=== PATIENT | male | born 1995 | race Hispanic/Latino ===

== ENCOUNTER 2022-08-24 13:11 | Emergency (ER) | payer SELFPAY ==
[2022-08-24] MEDS ORDERED: NA CHLORIDE 0.9% 1,000 ML ONE ×2 (14:16→15:35)
[2022-08-24] MEDS ORDERED: ONDANSETRON 4 MG/2 ML VIAL ONE (14:16)
[2022-08-24 14:30] LABS: Absolute Lymphocytes (CBC) 2.4 K/uL (0.7-4.9); Hematocrit 47.4 % (39.6-49.0); Lymphocytes % 19.2 % (15.3-44.8); MCV 85.2 fL (80-100); MPV 10.1 fL (7.6-11.3); RBC Red Blood Cell Count 5.57 M/uL (4.33-5.43)
[2022-08-24 15:08] LABS: Albumin 4.8 g/dL (3.4-5.0); Bilirubin Total 1.4 mg/dL (0.2-1.0); Potassium 3.6 mEq/L (3.5-5.1); Protein, Total 8.8 g/dL (6.4-8.2)
--- NOTE | 2022-08-24 15:57 | RAD REPORT ---
EXAM DESCRIPTION: US - Abdomen Exam Limited - 08/24/2022 3:47 pm CLINICAL HISTORY: Abdominal pain. Vomiting COMPARISON: None. FINDINGS: The gallbladder wall is not thickened. A gallstone is not seen. The biliary tree is normal caliber. Fatty liver IMPRESSION: Unremarkable gallbladder ultrasound.
--- NOTE | 2022-08-24 17:43 | EDPHYS ---
Physician Documentation [facility] Name: Sami Torres Age: 27 yrs Sex: Male : 1995 Arrival Date: 08/24/2022 Time: 13:11 Bed 18 Private MD: ED Physician Viral Sepulveda HPI: 08/24 13:39 This 27 yrs old Male presents to ER via Wheelchair with complaints of Vomiting.jmm 13:39 The patient presents to the emergency department with nausea, vomiting. Onset: The jmm symptoms/episode began/occurred acutely, today. Is a 27-year-old male with history of hypertension who presents emerged department with a cute onset of vomiting beginning earlier today. Patient states he was working out in the heat today and attributes the vomiting to getting overheated. Denies abdominal pain, diarrhea, fever. Historical: - Allergies: 13:41 No Known Allergies; bp - Home Meds: 13:41 Unable to obtain [Active]; bp - PMHx: 13:41 Hypertensive disorder; bp - Immunization history:: Adult Immunizations up to date. - Social history:: Smoking status: Patient denies any tobacco usage or history of. ROS: 13:39 Constitutional: Negative for fever, chills, and weight loss, Cardiovascular: Negative jmm for chest pain, palpitations, and edema, Respiratory: Negative for shortness of breath, cough, wheezing, and pleuritic chest pain. 13:39 Abdomen/GI: Positive for vomiting. 13:39 All other systems are negative. Exam: 13:39 Constitutional: This is a well developed, well nourished patient who is awake, alert, jmm and in no acute distress. Head/Face: atraumatic. Eyes: EOMI, no conjunctival erythema appreciated ENT: Moist Mucus Membranes Neck: Trachea midline, Supple Chest/axilla: Normal chest wall appearance and motion. Cardiovascular: Regular rate and rhythm. No edema appreciated Respiratory: Normal respirations, no respiratory distress appreciated Abdomen/GI: Non distended Back: Normal ROM Skin: General appearance color normal MS/ Extremity: Moves all extremities, no obvious deformities appreciated, no edema noted to the lower extremities Neuro: Awake and alert Psych: Behavior is normal, Mood is normal, Patient is cooperative and pleasant Vital Signs: 13:40 BP 128 / 95; Pulse 107; Resp 20; Temp 98.3; Pulse Ox 97% ; Weight 99.34 kg; Height 5 bp ft. 7 in. ; 14:30 BP 131 / 76; Pulse 80; Resp 18; Pulse Ox 95% on R/A; eh3 15:30 BP 124 / 75; Pulse 68; Resp 18; Pulse Ox 99% on R/A; eh3 16:30 BP 127 / 82; Pulse 71; Resp 18; Pulse Ox 99% on R/A; eh3 17:30 BP 131 / 84; Pulse 71; Resp 18; Pulse Ox 98% on R/A; eh3 13:40 Body Mass Index 34.30 (99.34 kg, 170.18 cm) bp MDM: 13:39 Patient medically screened. [facility] 18:26 Differential diagnosis: Nonspecific abd pain, gastritis, Rhabdomyolysis. Data reviewed: [facility] vital signs, nurses notes, lab test result(s). Consideration of Admission/Observation Escalation of care including admission/observation considered. Management of patient was discussed with the following: Dr. Sepulveda. I considered the following discharge prescriptions or medication management in the emergency department Medications were administered in the Emergency Department. See MAR. Counseling: I had a detailed discussion with the patient and/or guardian regarding: the historical points, exam findings, and any diagnostic results supporting the discharge/admit diagnosis, lab results, radiology results, the need for outpatient follow up, to return to the emergency department if symptoms worsen or persist or if there are any questions or concerns that arise at home. 08/24 13:40 Order name: CBC with Diff; Complete Time: 14:48 [facility] 08/24 13:40 Order name: CMP; Complete Time: 15:09 [facility] 08/24 13:40 Order name: Lipase; Complete Time: 15:09 [facility] 08/24 13:40 Order name: CPK; Complete Time: 15:09 [facility] 08/24 15:10 Order name: US Abdomen Limited; Complete Time: 16:06 [facility] 08/24 13:40 Order name: IV Saline Lock; Complete Time: 14:08 [facility] 08/24 13:40 Order name: Labs collected and sent; Complete Time: 14:08 [facility] Administered Medications: 14:25 Drug: NS 0.9% IV 1000 ml Route: IV; Rate: 1 bolus; Site: right antecubital; [facility] 15:10 Follow up: IV Status: Completed infusion; IV Intake: 1000ml 3 14:25 Drug: Ondansetron IVP 4 mg Route: IVP; Site: right antecubital; eh3 15:10 Follow up: Response: No adverse reaction 3 15:15 Drug: NS 0.9% IV 1000 ml Route: IV; Rate: 1 bolus; Site: right antecubital; eh3 16:34 Follow up: IV Status: Completed infusion; IV Intake: 1000ml 3 15:53 CANCELLED (Duplicate Order): NS 0.9% IV 2000 ml IV at 1 bolus Per protocol; 1000 mL [facility] bolus Disposition Summary: 08/24/22 17:43 Discharge Ordered Location: Home [facility] Condition: Stable [facility] Diagnosis - Vomiting [facility] Followup: [facility] - With: Private Physician - When: 2 - 3 days - Reason: Recheck today's complaints, Continuance of care, Re-evaluation by your physician Discharge Instructions: - Discharge Summary Sheet [facility] - Rhabdomyolysis [facility] Forms: - Medication Reconciliation Form [facility] - Thank You Letter [facility] - Antibiotic Education [facility] - Prescription Opioid Use [facility] - [email or web address] [facility] - Work release form 3 Prescriptions: - ondansetron 4 mg Oral Tablet,disintegrating - take 1 tablet by ORAL route every 4-6 hours As needed; 20 tablet; Refills: 0, [facility] Product Selection Permitted Signatures: Dispatcher [employer] EDMohan Gongora PA PA jmm Peltier, Brian, Madison Moncada RN, RN RN 3 Corrections: (The following items were deleted from the chart) 15:53 15:52 NS 0.9% IV 2000 ml IV at 1 bolus Per protocol; 1000 mL bolus ordered. [facility]
--- NOTE | 2022-08-24 17:43 | ER ---
Nurse's Notes [facility] Name: Sami Torres Age: 27 yrs Sex: Male : 1995 Arrival Date: 08/24/2022 Time: 13:11 Bed 18 Private MD: Diagnosis: Vomiting Presentation: 08/24 13:40 Chief complaint: Patient states: NAUSEA AND VOMITING AFTER HEAT EXPOSURE. Coronavirus bp screen: At this time, the client does not indicate any symptoms associated with coronavirus-19. Ebola Screen: No symptoms or risks identified at this time. Initial Sepsis Screen: Does the patient meet any 2 criteria? HR > 90 bpm. No. Patient's initial sepsis screen is negative. Does the patient have a suspected source of infection? No. Patient's initial sepsis screen is negative. Risk Assessment: Do you want to hurt yourself or someone else? Patient reports no desire to harm self or others. Onset of symptoms was August 24, 2022. 13:40 Method Of Arrival: Wheelchair bp 13:40 Acuity: THEODORE 3 bp Triage Assessment: 13:41 General: Appears distressed, Behavior is calm, cooperative, appropriate for age. Pain: bp Denies pain. EENT: No deficits noted. Neuro: No deficits noted. Cardiovascular: No deficits noted. Respiratory: No deficits noted. GI: Reports nausea, vomiting. : No signs and/or symptoms were reported regarding the genitourinary system. Derm: No deficits noted. Musculoskeletal: No deficits noted. Historical: - Allergies: 13:41 No Known Allergies; bp - Home Meds: 13:41 Unable to obtain [Active]; bp - PMHx: 13:41 Hypertensive disorder; bp - Immunization history:: Adult Immunizations up to date. - Social history:: Smoking status: Patient denies any tobacco usage or history of. Screenin:40 [facility] ED Fall Risk Assessment (Adult) Score/Fall Risk Level 0 - 2 = Low Risk. Abuse eh3 screen: Denies threats or abuse. Denies injuries from another. Nutritional screening: No deficits noted. Tuberculosis screening: No symptoms or risk factors identified. Assessment: 13:40 GI: Abdomen is round non-distended. eh3 13:40 General: Appears in no apparent distress. uncomfortable, Behavior is calm, cooperative, eh3 appropriate for age. Pain: Complains of pain in abdomen. Neuro: Level of Consciousness is awake, alert, obeys commands, Oriented to person, place, time, situation. Cardiovascular: Capillary refill < 3 seconds Patient's skin is warm and dry. Respiratory: Airway is patent Respiratory effort is even, unlabored. Derm: Skin is pink, warm \T\ dry. Musculoskeletal: Circulation, motion, and sensation intact. 14:30 Reassessment: Patient appears in no apparent distress at this time. Patient and/or 3 family updated on plan of care and expected duration. Pain level reassessed. Patient is alert, oriented x 3, equal unlabored respirations, skin warm/dry/pink. 15:30 Reassessment: Patient appears in no apparent distress at this time. Patient and/or eh3 family updated on plan of care and expected duration. Pain level reassessed. Patient is alert, oriented x 3, equal unlabored respirations, skin warm/dry/pink. 16:30 Reassessment: Patient appears in no apparent distress at this time. Patient and/or 3 family updated on plan of care and expected duration. Pain level reassessed. Patient is alert, oriented x 3, equal unlabored respirations, skin warm/dry/pink. 17:30 Reassessment: Patient appears in no apparent distress at this time. Patient and/or eh3 family updated on plan of care and expected duration. Pain level reassessed. Patient is alert, oriented x 3, equal unlabored respirations, skin warm/dry/pink. Vital Signs: 13:40 BP 128 / 95; Pulse 107; Resp 20; Temp 98.3; Pulse Ox 97% ; Weight 99.34 kg; Height 5 bp ft. 7 in. ; 14:30 BP 131 / 76; Pulse 80; Resp 18; Pulse Ox 95% on R/A; eh3 15:30 BP 124 / 75; Pulse 68; Resp 18; Pulse Ox 99% on R/A; eh3 16:30 BP 127 / 82; Pulse 71; Resp 18; Pulse Ox 99% on R/A; eh3 17:30 BP 131 / 84; Pulse 71; Resp 18; Pulse Ox 98% on R/A; eh3 13:40 Body Mass Index 34.30 (99.34 kg, 170.18 cm) bp ED Course: 13:12 Patient arrived in ED. rg4 13:12 Mohan Menezes PA is PHCP. jmm 13:12 Viral Sepulveda MD is Attending Physician. jmm 13:40 Patient has correct armband on for positive identification. Pulse ox on. NIBP on. eh3 13:41 Triage completed. bp 13:41 Arm band placed on. bp 14:06 Madison Thacker, RN is Primary Nurse. eh3 14:08 CBC with Diff Sent. aw1 14:09 CMP Sent. aw1 14:09 Lipase Sent. aw1 14:09 Inserted saline lock: 20 gauge in right antecubital area, using aseptic technique. aw1 14:09 Initial lab(s) drawn, by me, sent to lab. aw1 15:49 US Abdomen Limited In Process Unspecified. EDMS 16:33 No provider procedures requiring assistance completed. eh3 18:16 IV discontinued, intact, bleeding controlled, No redness/swelling at site. Pressure eh3 dressing applied. Administered Medications: 14:25 Drug: NS 0.9% IV 1000 ml Route: IV; Rate: 1 bolus; Site: right antecubital; eh3 15:10 Follow up: IV Status: Completed infusion; IV Intake: 1000ml eh3 14:25 Drug: Ondansetron IVP 4 mg Route: IVP; Site: right antecubital; eh3 15:10 Follow up: Response: No adverse reaction eh3 15:15 Drug: NS 0.9% IV 1000 ml Route: IV; Rate: 1 bolus; Site: right antecubital; eh3 16:34 Follow up: IV Status: Completed infusion; IV Intake: 1000ml eh3 15:53 CANCELLED (Duplicate Order): NS 0.9% IV 2000 ml IV at 1 bolus Per protocol; 1000 mL [facility] bolus Medication: 16:33 VIS not applicable for this client. eh3 Intake: 15:10 IV: 1000ml; Total: 1000ml. eh3 16:34 IV: 1000ml; Total: 2000ml. eh3 Outcome: 17:43 Discharge ordered by . [facility] 18:16 Discharged to home ambulatory. eh3 18:16 Condition: stable 18:16 Discharge instructions given to patient, Instructed on discharge instructions, follow up and referral plans. medication usage, Demonstrated understanding of instructions, follow-up care, medications, Prescriptions given X 1. 18:26 Patient left the ED. mb9 Signatures: Dispatcher [employer] EDMohan Gongora PA PA jmm Garcia, Rubi rg4 Kevin Manley, RN RN Madison Mccray RN RN 3 Kae Julian RN RN mb9 Giuliana Roberts aw1 Corrections: (The following items were deleted from the chart) 16:31 14:30 GI: Abdomen is round non-distended, eh3 eh3 16:33 13:40 Client placed on continuous cardiac and pulse oximetry monitoring. NIBP eh3 monitoring applied. eh3 17:13 13:40 GI: Abdomen is round non-distended, eh3 eh3
[2022-08-24 18:31] VITALS: TEMP 98.3
[2022-08-24 18:38] VITALS: BP 131/84; O2SAT 98
== END 2022-08-24 18:26 | disposition home or self-care (01) ==
LOC: ER 13:11
DX: R11.10 Vomiting, unspecified (principal)
CPT/HCPCS: 36415; 76705; 80053; 82550; 83690; 85025; 96361; 96374; 99284; J2405; J7030